=== PATIENT | female | born 1985 | race Caucasian/White ===

== ENCOUNTER → 2022-11-28 | Outpatient (CLI) | payer OTHER, SELFPAY ==
[2022-11-29 22:07] LABS: Chlamydia By Nucleic Acid AMP Negative (Negative); Gonococcus By Nucleic Acid AMP Negative (Negative)
== END | disposition home or self-care (01) ==
LOC: LABSPEC 11:53
PROVIDERS: Referring Provider Obstetrics & Gynecology; Visit Provider Obstetrics & Gynecology
DX: O09.91 Supervision of high risk pregnancy, unspecified, first trimester (principal)
CPT/HCPCS: 87491; 87591

== ENCOUNTER → 2023-06-12 | Outpatient (CLI) | payer OTHER, SELFPAY ==
[2023-06-12 14:19] LABS: Protein:Creat Ratio 65 mg/g CRE (0-200)
[2023-06-17 00:06] LABS: Chlamydia By Nucleic Acid AMP Negative (Negative); Gonococcus By Nucleic Acid AMP Negative (Negative)
== END | disposition home or self-care (01) ==
LOC: LABSPEC 13:47
PROVIDERS: Referring Provider Obstetrics & Gynecology; Visit Provider Obstetrics & Gynecology
DX: Z34.90 Encounter for supervision of normal pregnancy, unspecified, unspecified trimester (principal); Z3A.00 Weeks of gestation of pregnancy not specified
CPT/HCPCS: 82570; 84156; 87086; 87088; 87491; 87591

== ENCOUNTER → 2023-07-16 | Outpatient (CLI) | payer OTHER, SELFPAY ==
[2023-07-16 10:27] LABS: Absolute Lymphocyte Count 1.24 X10^3/uL (0.83-4.51); Absolute Neutrophil Count 4.3 X10^3/uL (2.0-7.7); Basophil# 0.02 X10^3/uL; Basophil% 0.3 % (0-1); Eosinophil# 0.33 X10^3/uL; Eosinophils% 5.1 % (0-5); Hematocrit 37.6 % (37-47); Hemoglobin 13.1 g/dL (12.0-15.0); Lymphocyte # 1.24 X10^3/ul (0.83-4.51); Lymphocyte % 19.1 % (19-41); Mean Corp Hgb Conc 34.8 g/dL (32-36); Mean Corpuscular Hgb 31.3 pg (27.0-32.0); Mean Corpuscular Volume 89.7 fL (81-99); Mean Platelet Vol. 9.1 fl (6.2-12.0); Monocyte# 0.56 X10^3/uL; Monocyte% 8.6 % (0-10); NRBC Flagged by Analyzer 0 % (0-5); Neutrophil # 4.32 X10^3/uL (2.7-7.7); Neutrophil % 66.6 % (47-70); Platelet Count 220 K/mm3 (150-450); Red Blood Count 4.19 M/mm3 (4.2-5.4); White Blood Count 6.5 K/mm3 (4.4-11.0)
[2023-07-16 10:45] LABS: ALB/GLOB Ratio 0.8 RATIO (0.9-2.4); AST(SGOT) 10 U/L (15-37); Alanine Aminotransfer ALT/SGPT 17 U/L (13-56); Alkaline Phosphatase 44 U/L (45-117); Anion Gap 6 (5-15); BUN 12 mg/dL (7-18); BUN/Creat Ratio 15.4 RATIO (10-20); Calcium,Total 9.1 mg/dL (8.5-10.1); Chloride 109 mmol/L (98-107); Creatinine, Serum 0.78 mg/dL (0.55-1.02); EST Glomerular Filtration Rate 88 mL/min (>60); Est Glom Filt Rate - Afr Amer 107 mL/min (>60); Globulin 3.9 g/dL (2.2-4.2); Glucose 82 mg/dL (74-106); Potassium 4.2 mmol/L (3.5-5.1); Protein, Total 6.9 g/dL (6.4-8.2); Sodium Level 137 mmol/L (136-145)
[2023-07-16 11:45] LABS: HIV - WCH Non-Reactive (Nonreactive); Hepatitis B Surface Antigen Non-Reactive (Nonreactive); Hepatitis C Antibody Non-Reactive (Nonreactive); Rubella IgG Reactive (Nonreactive); Syphilis Antibodies Non-reactive
== END | disposition home or self-care (01) ==
LOC: PAVLAB 09:51
PROVIDERS: Referring Provider Obstetrics & Gynecology; Visit Provider Obstetrics & Gynecology
DX: O09.299 Supervision of pregnancy with other poor reproductive or obstetric history, unspecified trimester (principal); Z3A.00 Weeks of gestation of pregnancy not specified
CPT/HCPCS: 36415; 80053; 85025; 86703; 86762; 86780; 86803; 86850; 86900; 86901; 87340

== ENCOUNTER → 2023-10-10 | Outpatient (CLI) | payer OTHER, SELFPAY ==
[2023-10-10 16:06] LABS: Absolute Lymphocyte Count 1.11 X10^3/uL (0.83-4.51); Absolute Neutrophil Count 3.8 X10^3/uL (2.0-7.7); Basophil# 0.03 X10^3/uL; Basophil% 0.5 % (0-1); Eosinophil# 0.86 X10^3/uL; Hematocrit 35.1 % (37-47); Hemoglobin 12.2 g/dL (12.0-15.0); Lymphocyte # 1.11 X10^3/ul (0.83-4.51); Lymphocyte % 18.1 % (19-41); Mean Corp Hgb Conc 34.8 g/dL (32-36); Mean Corpuscular Hgb 31.9 pg (27.0-32.0); Mean Corpuscular Volume 91.9 fL (81-99); Mean Platelet Vol. 9.4 fl (6.2-12.0); Monocyte# 0.29 X10^3/uL; Monocyte% 4.7 % (0-10); NRBC Flagged by Analyzer 0 % (0-5); Neutrophil # 3.83 X10^3/uL (2.7-7.7); Neutrophil % 62.4 % (47-70); Platelet Count 222 K/mm3 (150-450); RBC Distribution Width CV 13.2 % (11.6-14.6); RBC Distribution Width SD 43.8 fl (35.1-43.9); Red Blood Count 3.82 M/mm3 (4.2-5.4); White Blood Count 6.1 K/mm3 (4.4-11.0)
[2023-10-10 16:31] LABS: Glucose Challenge Gest 1H 50g 163 mg/dL (70-140)
[2023-10-10 18:05] LABS: HIV - WCH Non-Reactive (Nonreactive); Syphilis Antibodies Non-reactive
== END | disposition home or self-care (01) ==
LOC: LAB 15:53
PROVIDERS: Referring Provider Obstetrics & Gynecology; Visit Provider Obstetrics & Gynecology
DX: O09.90 Supervision of high risk pregnancy, unspecified, unspecified trimester (principal); Z13.1 Encounter for screening for diabetes mellitus; Z3A.00 Weeks of gestation of pregnancy not specified
CPT/HCPCS: 36415; 82950; 85025; 86703; 86780

== ENCOUNTER → 2023-10-22 | Outpatient (CLI) | payer OTHER, SELFPAY ==
[2023-10-22 08:03] LABS: Glucose GTT-Gestation. Fasting 95 mg/dL (<105)
[2023-10-22 08:50] LABS: Glucose GTT-Gestational 1 Hr 183 mg/dL (<190)
[2023-10-22 10:03] LABS: Glucose GTT-Gestational 2 Hr 129 mg/dL (<165)
[2023-10-22 11:21] LABS: Glucose GTT-Gestational 3 Hr 85 L (<145)
== END | disposition home or self-care (01) ==
LOC: LAB 07:13
PROVIDERS: Referring Provider Advanced Practice Midwife; Visit Provider Advanced Practice Midwife
DX: O99.281 Endocrine, nutritional and metabolic diseases complicating pregnancy, first trimester (principal); Z3A.00 Weeks of gestation of pregnancy not specified
CPT/HCPCS: 36415; 82951; 82952

== ENCOUNTER → 2023-12-02 | Outpatient (CLI) | payer OTHER, SELFPAY ==
--- NOTE | 2023-12-02 12:32 | US_ITS ---
STUDY: SECOND AND THIRD TRIMESTER OBSTETRICAL ULTRASOUND - LIMITED REASON FOR EXAM: Female, 38 years old routine survey LMP: 03/26/2023 PRIOR ULTRASOUND: None. TECHNIQUE: Transabdominal TECHNICAL QUALITY: Adequate. FINDINGS: There is a single intrauterine fetus. The fetus is in a cephalic presentation. There is demonstrated cardiac activity with a heart rate of 152 bpm. There is a normal amniotic fluid volume. The largest amniotic fluid pocket measures 4.3 cm. The amniotic fluid index (ANDREA) is 12 cm. The placenta is anterior in location and is not low lying. There are Grade 1 placental changes. The cervix was not measured BIOMETRY: BPD: 9.2 cm: 37 weeks, 2 days HC: 32.6 cm: 37 weeks, 0 days AC: 32.5 cm: 36 weeks, 3 days FL: 6.8 cm: 35 weeks, 0 days age by current US: 36 weeks, 4 days. HARSHAL by current US: 12/26/2023. Estimated weight: 2914 grams, +/- 437 grams, 64 percentile. US/OB Limited With Biometrics IMPRESSION: Single live intrauterine at 36 weeks, 4 days by current ultrasound with HARSHAL of 12/26/2023. Heart rate at 152 bpm. No suspicious sonographic findings. Electronically Signed: Imtiaz Reddy MD at 15:21 EDT ,
[2023-12-04 16:09] LABS: Lyme Scn Total Ab w/Rflx Negative (Negative)
== END | disposition home or self-care (01) ==
PROVIDERS: Obstetrics & Gynecology; Referring Provider Nurse Practitioner Women's Health; Visit Provider Nurse Practitioner Women's Health
DX: O9A.212 Injury, poisoning and certain other consequences of external causes complicating pregnancy, second trimester (principal); O09.92 Supervision of high risk pregnancy, unspecified, second trimester; S30.861A Insect bite (nonvenomous) of abdominal wall, initial encounter; W57.XXXA Bitten or stung by nonvenomous insect and other nonvenomous arthropods, initial encounter; Z3A.00 Weeks of gestation of pregnancy not specified
CPT/HCPCS: 36415; 76816; 86618; 87081

== ENCOUNTER 2023-12-24 11:58 | Outpatient (CLI) | payer OTHER, SELFPAY ==
--- NOTE | 2023-12-24 12:08 | US_ITS ---
STUDY: OBSTETRICAL ULTRASOUND - BIOPHYSICAL PROFILE REASON FOR EXAM: Female, 38 years old variables LMP: March 26, 2023 PRIOR ULTRASOUND: Comparison is made with prior study December 02, 2023. TECHNIQUE: Transabdominal TECHNICAL QUALITY: Adequate. FINDINGS: There is a single intrauterine fetus. The fetus is in a cephalic presentation. There is demonstrated cardiac activity with a heart rate of 155 bpm. There is a normal amniotic fluid volume. The largest amniotic fluid pocket measures 4.2 cm. The amniotic fluid index (ANDREA) is 10.9 cm. The placenta is anterior in location and is not low lying. There are Grade 1 placental changes. Age by LMP: 39 weeks, 0 days. HARSHAL by LMP: December 31, 2023. age by prior US: 39 weeks, 5 days. HARSHAL by prior US: December 26, 2023. BIOPHYSICAL PROFILE: Breathing Movements (FBM): 2 Gross Body Movements (GBM): 2 Tone (FT): 2 Amniotic Fluid Volume (AFV): 2 TOTAL SCORE: 8/ 8 US/Biophysical Prof W/O Non Stres IMPRESSION: Normal biophysical profile of 8/8. Electronically Signed: Leandro Hernandez MD at 13:32 EDT ,
[2023-12-24 12:09] VITALS: BMI 30.8
[2023-12-24 12:21] VITALS: BP 120/81; PULSE 82; O2SAT 99
[2023-12-24 12:22] VITALS: RESP 14; TEMP 36.9; O2SAT 99
[2023-12-24 13:50] VITALS: RESP 15; TEMP 36.9
--- NOTE | 2023-12-24 16:37 | OB.TRI.HP_ITS ---
HPI - General HPI Narrative PRESTON WIGGINS, is a 38 y/o @ 39 WEEKS 0 DAYS who presents to L&D for a bpp due to a non-reactive nst. She has a history of factor V on lovenox, is ama, and has a prior uterine scar. She came to us in the hopes to deliver vaginally but her insurance is not without our network. She is closed thick and high today and is already 39 weeks. Her bpp was 02/18 however the recommendation is to deliver here soon via repeat section. Her office in [place] will take her due to late transfer of care and she would pay out of pocket for MFM in [place]. Because of this she has decided to allow us to schedule her section for next week. Maternal Data Information HARSHAL Calculator Estimated Delivery Date Method Current WG Current Estimate 12/31/23 LMP (Certain) 39w 0d Other Estimates 03/02/24 Conception 30w 1d PFSH PFSH Medical History FH: factor V Leiden mutation Hx of ectopic Supervision of high risk in first trimester Home Medications ?Medication ?Instructions ?Recorded ?Last Taken ?Type ascorbic acid (vitamin C) 500 mg mg PO 11/28/22 Unknown History capsule cholecalciferol (vitamin D3) 50 50 mcg PO DAILY 11/28/22 Unknown History mcg (2,000 unit) capsule coenzyme Q10 75 mg capsule (Ultra 75 mg PO DAILY 11/28/22 Unknown History CoQ10) docosahexaenoic acid 200 mg mg PO 11/28/22 Unknown History capsule ( DHA) promethazine 12.5 mg tablet 12.5 mg PO Q6H PRN nausea and 07/16/23 Unknown Rx vomiting #30 tabs breast pump #1 ea 11/05/23 Unknown Rx enoxaparin 40 mg/0.4 mL 40 mg (0.4 mL) subcut DAILY #4 mL 11/14/23 Unknown Rx subcutaneous syringe (Lovenox) heparin, porcine (PF) 5,000 5,000 unit (0.5 mL) subcut Q12H 12/24/23 Unknown Rx unit/0.5 mL injection syringe #25 mL Allergy/AdvReac Type Severity Reaction Status Date / Time No Known Allergies Allergy Verified 12/24/23 10:59 Family History Father Myocardial infarction Grandmother Colon cancer Sister Gestational diabetes Surgical History [place] teeth extracted History of dilatation and curettage H/O unilateral salpingectomy Social History adopted: No household members: spouse and children number of children: 1 current occupational status: employed current occupation: Mental Health Counselor current occupational exposures/hazards: No pets and animals: No history of recent travel: No sexually active: Yes Smoking Status: Never smoker alcohol intake: never substance use type: does not use well-balanced diet: daily or most days caffeine: Yes Type: coffee Number of servings: 1 and tea Number of servings: 1 eating out: 1-3 times/week during the past year weight has: remained stable what type of physical activity do you participate in: walking and weight training frequency: 3-4 times per week duration: 30-45 minutes/day heather/denominational: Quaker seatbelt use: always do you feel safe at home: Yes additional social history: - Tho- Nurse History 4 Elective abortions Hx Para 1 Spontaneous abortions 1 Hx # Term Pregnancies Ectopic pregnancies 1 Hx # Pregnancies Multiple births # of living children 1 Past Pregnancies Del. Date Name GA/Weeks Outcome Route Bth Weight Gen Labor Lgth Anesthesia [facility] Provider FOB 07/16/17 ectopic 02/23/21 [place] 40 live - full term Female 12/03/22 miscarriage-failed IVF Delivery Date: 07/16/17 Last Updated by: Selina Burgess DO Ectopic with removal of left fallopian tube. Delivery Date: 02/23/21 Last Updated by: Selina Burgess DO for distress and htn Visit Details Expected Delivery Route/Plan plan TOLAC by 40, will get 2x weekly nst between 39 and 40 weeks. patient counseled regarding risks/benefits of trial of labor versus repeat . ACOG/uptodate education given to patient. 62 % likelihood of success per calculator TOLAC consent form signed: [] Plans Covid status: [] Flu vaccine: [] Tdap vaccine: done Rhogam: [] LARC form signed: done Problem list reviewed and updated with the most current plan of care details and appropriate orders placed. Relevant counseling for the gestational age provided. Continue routine care and follow up unless otherwise noted in visit notes/problem list details OB Flowsheet Initial Weight: Not Recorded Date -?-?-?-?-?-?-?-?-?-?-?-?- EGA Weight BP Urine Prot -?-?-?-?-?--?-?-?-?-?-?-?- Glucose FHR FuHt Pres Dilation -?-?-?-?-?-?-?-?-?-?-?--?- Effaced St Visit Note 06/12/23 -?-?-?-?-?-?-?-?-?-?-?-?- 11w 1d 147 lb 98/70 -?-?-?-?-?-?-?-?-?-?-?-?- 170 -?-?-?-?-?-?-?-?-?-?-?-?- SM- CRL cons wit h LMP 07/16/23 -?-?-?-?-?-?-?-?-?-?-?-?- 16w 0d 148 lb 2 oz 98/66 Nega tive -?-?-?-?-?-?-?-?-?-?-?-?- Negative 158 -?-?-?-?-?-?-?-?-?-?-?-?- MH-No VB. Feelin g flutters. Still struggling with nausea. Also some headaches without vision changes. Rx phenergan. Reviewed caffeine intake. [facility] US scheduled and will do echo w them. PN labs today 08/11/23 -?-?-?-?-?-?-?-?-?-?-?-?- 19w 5d 153 lb 101/65 Negative -?-?-?-?-?-?-?-?-?-?-?-?- Negative 150 -?-?-?-?-?-?-?-?-?-?-?-?- JV- feeling flut ters, has echo on 08/27. having a boy! 09/10/23 -?-?-?-?-?-?-?-?-?-?-?-?- 24w 0d 155 lb 104/72 Negative -?-?-?-?-?-?-?-?-?-?-?-?- Negative 154 24 -?-?-?-?-?-?-?-?-?-?-?-?- JV- had anatomy and echo at [facility]. will need to call for results, pt already signed release. 10/10/23 -?-?-?-?-?-?-?-?-?-?-?-?- 28w 2d 160 lb 2 oz 112/80 -?-?-?--?-?-?-?-?-?-?-?-?- 140 28 -?-?-?-?-?-?-?-?-?-?-?-?- KW- no vb/lof/ct x. good fm. Tdap today. LARC done. KW- no vb/lof/ctx. good fm. Tdap today. LARC done. labs reviewed. 3 hour ordered 10/22/23 -?-?-?-?-?-?-?-?-?-?-?-?- 30w 0d 162 lb 8 oz 110/66 Nega tive -?-?-?-?-?-?-?-?-?-?-?-?- Negative 151 30 -?-?-?-?-?-?-?-?-?-?-?-?- MH-No VB, LOF. G ood FM. Did 3 hr GTT today. Some reflux/nausea-will try pepcid QHS 11/05/23 -?-?-?-?-?-?-?-?-?-?-?-?- 32w 0d 163 lb 2 oz 109/75 Nega tive -?-?-?-?-?-?-?-?-?-?-?-?- Negative 150 -?-?-?-?-?-?-?-?-?-?-?-?- JV- JV-NST. pt upset today when mentioned delivering at 39 weeks and may have to be a repeat section. she states that she is coming here paying out of pocket to [place] and if needs to schedule a section she will do that closer to home. will plan 39 week membrane strip and IOL sometime within the 39th week. 11/14/23 -?-?-?-?-?-?-?-?-?-?-?-?- 33w 2d 164 lb 4 oz 95/68 Nega tive -?-?-?-?-?-?-?-?-?-?-?-?- Negative 140 -?-?-?-?-?-?-?-?-?-?-?-?- SM- no vb lof go od fm nor egular ctx co hip pain discussed exp management with increased testing after 39-40 weeks if needed. jessica by 40 11/18/23 -?-?-?-?-?-?-?-?-?-?-?-?- 33w 6d 165 lb 95/65 Negative -?-?-?-?-?-?-?-?-?-?-?-?- Negative 140 -?-?-?-?-?-?-?-?-?-?-?-?- SM- no vb crampi ng 11/25/23 -?-?-?-?-?-?-?-?-?-?-?-?- 34w 6d 169 lb 6 oz 93/62 Trac e -?-?-?-?-?-?-?-?-?-?-?-?- Negative 140 -?-?-?-?-?-?-?-?-?-?-?-?- -NST only reac tive 12/02/23 -?-?-?-?-?-?-?-?-?-?-?-?- 35w 6d 168 lb 8 oz 124/89 Nega tive -?-?-?-?-?-?-?-?-?-?-?-?- Negative 140 36 -?-?-?-?-?-?-?-?-?-?-?-?- JV- nst reactive . gbs collected. pt was bit by a tick on her abdomen a couple of weeks ago. has a bruise on her abdomen (not a target lesion). however could be bruise from lovenox. ordering lyme studies. 12/12/23 -?-?-?-?-?-?-?-?-?-?-?-?- 37w 2d 174 lb 8 oz 111/79 Nega tive -?-?-?-?-?-?-?-?-?-?-?-?- Negative 140 -?-?-?-?-?-?-?-?-?-?-?-?- SM- no vb lof go od fm n oregular ctx 12/19/23 -?-?-?-?-?-?-?-?-?-?-?-?- 38w 2d 174 lb 4 oz 120/83 Nega tive -?-?-?-?-?-?-?-?-?-?-?-?- Negative 140 38 0 -?-?-?-?-?-?-?-?-?-?-?-?- 0 -4 SM- extens kika discussion regarding unfavorable cervix, risk of continued , risk of lovenox vs switching to heparin, will discuss amongst group to decide delivery planning. patient may decide to have RLTCS with [facility] due to insurance coverage if is unlikely 12/24/23 -?-?-?-?-?-?-?-?-?-?-?-?- 39w 0d 176 lb 4 oz 131/87 Nega tive -?-?-?-?-?-?-?-?-?-?-?-?- Negative 140 37 Cephalic 0 -?-?-?-?--?-?-?-?-?-?-?-?- 0 -4 JV- nst no t reactive and had 2 small carrot decels. ANDREA is 7 today. not likely to happen. sending to L&D now for a bpp. if stable may want to be transferred to [place] but i can not promise this will happen as she never established care with anyone down there. ROS Constitutional Constitutional: Reports systems reviewed and no addt'l complaints, except as documented Gastrointestinal Gastrointestinal: Denies bloating, constipation, cramping, diarrhea, nausea or vomiting Genitourinary Genitourinary: Reports other Details: Denies vaginal odor, vaginal bleeding, or vaginal discharge ; Denies difficulty urinating or flank pain Physical Exam HEENT normocephalic Resp normal respiratory effort and normal air movement no CVA tenderness Extremity normal to inspection General Extremity: edema bilateral (trace ) NST FHR Rate Baby A Baseline: 140 Variability:: Moderate Accelerations:: 15 x 15 Decelerations:: None NST Reactive:: Yes FHR Category:: Category I Assessment & Plan (1) AMA (advanced maternal age) multigravida 35+: QUALIFIERS: Trimester: third trimester Qualified Code(s): O09.523 - Supervision of elderly multigravida, third trimester COMMENT: growth US 36 wk: EFW 64%, AC 75% (2) Abnormal glucose affecting : COMMENT: 3 hr GTT normal (3) Headache in : QUALIFIERS: Trimester: second trimester Qualified Code(s): O26.892 - Other specified related conditions, second trimester; R51.9 - Headache, unspecified COMMENT: No vision changes. Phenergan sent, may use small amount caffeine (4) Nausea/vomiting in : COMMENT: phenergan; occurs a couple mornings per week, try pepcid Qhs (5) resulting from in-vitro fertilization: COMMENT: recommend third trimester testing and 39 week delivery echo 22-24 wk-nl (6) Hx of pre-eclampsia in prior , currently : COMMENT: baseline labs ordered, on heparin (7) Supervision of high-risk : QUALIFIERS: Trimester: second trimester Qualified Code(s): O09.92 - Supervision of high risk , unspecified, second trimester COMMENT: PRR , HARSHAL 12/31/23, boy Rudolph Mortensen, Tho (8) : QUALIFIERS: Weeks of gestation: 39 weeks Qualified Code(s): Z3A.39 - 39 weeks gestation of COMMENT: gbs neg, declined genetic & carrier testing [facility] US 08/04/23 (9) History of delivery: COMMENT: 2018 ectopic 2021 primary section for distress and htn. 62% success, wants to - tearful when bringing up scheduling incase does not go in to labor. StatesI only came here to and I'm paying out of pocket, so if we are planning a then I will go to a place closer to my home. has a difficult time post op with a wound vac. (10) Heterozygous factor V Leiden mutation: COMMENT: Factor 2 and factor V heterozygous- no clots in past but father had life threatening blood clots with these disorders and specialists in the past have recommended lovenox during . On lovenox, plan twice weekly NST between 39-40 weeks with deliveyr at 40 weeks requested by patient. if will deliver in [place], if repeat csection may deliver at [facility] due to insurance coverage. Charges/Coding Multi Select Codes Visit Charges Office Visit/Consults: 57435 OV L3 Est 20min Urinary/Genital Urinary/Genital CPT Codes: 41427-73 non-stress test Interp
== END 2023-12-24 15:00 | disposition home or self-care (01) ==
LOC: WPOUT 12:04 → WP 12:04
PROVIDERS: Referring Provider Obstetrics & Gynecology; Visit Provider Obstetrics & Gynecology
DX: O09.523 Supervision of elderly multigravida, third trimester (principal); O99.810 Abnormal glucose complicating pregnancy; O99.113 Other diseases of the blood and blood-forming organs and certain disorders involving the immune mechanism complicating pregnancy, third trimester; D68.51 Activated protein C resistance; Z3A.39 39 weeks gestation of pregnancy
CPT/HCPCS: 59025; 59050; 76819; 99221; G0378

== ENCOUNTER 2023-12-30 17:17 | Inpatient (IN) | payer OTHER, SELFPAY ==
[2023-12-30] VITALS (7 sets, daily range): BP systolic 107–131; BP diastolic 73–85; PULSE 71–93; RESP 16; TEMP 36.6–36.9; O2SAT 97–100; BMI 31.1
--- NOTE | 2023-12-30 17:18 | HP.PCM.OB_ITS ---
HPI - General General Date of Admission: 12/30/23 HPI Narrative PRESTON WIGGINS, is a 38 y/o @ 39 weeks 6 days who presents to L&D with spontaneous rupture of membranes that started at 12 or 1 pm today. She presented at 5:00 pm. She admits to some bloody show and occasional contractions. Maternal Data Information HARSHAL Calculator Estimated Delivery Date Method Current WG Current Estimate 12/31/23 LMP (Certain) 39w 6d Other Estimates 03/02/24 Conception 31w 0d PFSH PFSH Medical History FH: factor V Leiden mutation Hx of ectopic Supervision of high risk in first trimester Home Medications ?Medication ?Instructions ?Recorded ?Last Taken ?Type ascorbic acid (vitamin C) 500 mg mg PO 11/28/22 Unknown History capsule cholecalciferol (vitamin D3) 50 50 mcg PO DAILY 11/28/22 Unknown History mcg (2,000 unit) capsule coenzyme Q10 75 mg capsule (Ultra 75 mg PO DAILY 11/28/22 Unknown History CoQ10) docosahexaenoic acid 200 mg mg PO 11/28/22 Unknown History capsule ( DHA) promethazine 12.5 mg tablet 12.5 mg PO Q6H PRN nausea and 07/16/23 Unknown Rx vomiting #30 tabs breast pump #1 ea 11/05/23 Unknown Rx heparin, porcine (PF) 5,000 5,000 unit (0.5 mL) subcut Q12H 12/24/23 Unknown Rx unit/0.5 mL injection syringe #25 mL Allergy/AdvReac Type Severity Reaction Status Date / Time No Known Allergies Allergy Verified 12/26/23 09:10 Family History Father Myocardial infarction Grandmother Colon cancer Sister Gestational diabetes Surgical History Prosper teeth extracted History of dilatation and curettage H/O unilateral salpingectomy Social History adopted: No household members: spouse and children number of children: 1 current occupational status: employed current occupation: Mental Health Counselor current occupational exposures/hazards: No pets and animals: No history of recent travel: No sexually active: Yes Smoking Status: Never smoker alcohol intake: never substance use type: does not use well-balanced diet: daily or most days caffeine: Yes Type: coffee Number of servings: 1 and tea Number of servings: 1 eating out: 1-3 times/week during the past year weight has: remained stable what type of physical activity do you participate in: walking and weight training frequency: 3-4 times per week duration: 30-45 minutes/day heather/tenriism: Faith seatbelt use: always do you feel safe at home: Yes additional social history: - Tho- Nurse History 4 Elective abortions Hx Para 1 Spontaneous abortions 1 Hx # Term Pregnancies Ectopic pregnancies 1 Hx # Pregnancies Multiple births # of living children 1 Past Pregnancies Del. Date Name GA/Weeks Outcome Route Bth Weight Infant Gen Labor Lgth Anesthesia Del [facility] Provider FOB 07/16/17 ectopic 02/23/21 Festus 40 live - full term Female 12/03/22 miscarriage-failed IVF Delivery Date: 07/16/17 Last Updated by: Selina Burgess, DO Ectopic with removal of left fallopian tube. Delivery Date: 02/23/21 Last Updated by: Selina Burgess, DO for distress and htn Visit Details Expected Delivery Route/Plan plan TOLAC by 40, will get 2x weekly nst between 39 and 40 weeks. patient counseled regarding risks/benefits of trial of labor versus repeat . ACOG/uptodate education given to patient. 62 % likelihood of success per calculator TOLAC consent form signed: [] Plans Covid status: [] Flu vaccine: [] Tdap vaccine: done Rhogam: [] LARC form signed: done Problem list reviewed and updated with the most current plan of care details and appropriate orders placed. Relevant counseling for the gestational age provided. Continue routine care and follow up unless otherwise noted in visit notes/problem list details OB Flowsheet Initial Weight: Not Recorded Date -?-?-?-?-?-?-?-?-?-?-?-?- EGA Weight BP Urine Prot -?-?-?-?-?-?-?-?-?-?-?-?- Glucose FHR FuHt Pres Dilation -?-?-?-?-?-?-?-?-?-?-?-?- Effaced St Visit Note 06/12/23 -?-?-?-?-?-?-?-?-?-?-?-?- 11w 1d 147 lb 98/70 -?-?-?-?-?-?-?-?-?-?-?-?- 170 -?-?-?-?-?-?-?-?-?-?-?-?- SM- CRL cons wit h LMP 07/16/23 -?-?-?-?-?-?-?-?-?-?-?-?- 16w 0d 148 lb 2 oz 98/66 Nega tive -?-?-?-?-?-?-?-?-?-?-?-?- Negative 158 -?-?-?-?-?-?-?-?-?-?-?-?- MH-No VB. Feelin g flutters. Still struggling with nausea. Also some headaches without vision changes. Rx phenergan. Reviewed caffeine intake. [facility] US scheduled and will do echo w them. PN labs today 08/11/23 -?-?-?-?-?-?-?-?-?-?-?-?- 19w 5d 153 lb 101/65 Negative -?-?-?-?-?-?-?--?-?-?-?-?- Negative 150 -?-?-?-?-?-?-?-?-?-?-?-?- JV- feeling flut ters, has echo on 08/27. having a boy! 09/10/23 -?-?-?-?-?-?-?-?-?-?-?-?- 24w 0d 155 lb 104/72 Negative -?-?-?-?-?-?-?-?-?-?-?-?- Negative 154 24 -?-?-?-?-?-?-?-?-?-?-?-?- JV- had anatomy and echo at [facility]. will need to call for results, pt already signed release. 10/10/23 -?-?-?-?-?-?-?-?-?-?-?-?- 28w 2d 160 lb 2 oz 112/80 -?-?-?-?-?-?-?-?-?-?-?-?- 140 28 -?-?-?-?-?-?-?-?-?-?-?-?- KW- no vb/lof/ct x. good fm. Tdap today. LARC done. KW- no vb/lof/ctx. good fm. Tdap today. LARC done. labs reviewed. 3 hour ordered 10/22/23 -?-?-?-?-?-?-?-?-?-?-?-?- 30w 0d 162 lb 8 oz 110/66 Nega tive -?-?-?-?-?-?-?-?-?-?-?-?- Negative 151 30 -?-?-?-?-?-?-?-?-?-?-?-?- MH-No VB, LOF. G ood FM. Did 3 hr GTT today. Some reflux/nausea-will try pepcid QHS 11/05/23 -?-?-?-?-?-?-?-?-?-?-?-?- 32w 0d 163 lb 2 oz 109/75 Nega tive -?-?-?-?-?-?-?-?-?-?-?-?- Negative 150 -?-?-?-?-?-?-?-?-?-?-?-?- JV- JV-NST. pt upset today when mentioned delivering at 39 weeks and may have to be a repeat section. she states that she is coming here paying out of pocket to [place] and if needs to schedule a section she will do that closer to home. will plan 39 week membrane strip and IOL sometime within the 39th week. 11/14/23 -?-?-?-?-?-?-?-?-?-?-?-?- 33w 2d 164 lb 4 oz 95/68 Nega tive -?-?-?-?-?-?-?-?-?-?-?-?- Negative 140 -?-?-?-?-?-?-?-?-?-?-?-?- SM- no vb lof go od fm nor egular ctx co hip pain discussed exp management with increased testing after 39-40 weeks if needed. jessica by 40 11/18/23 -?-?-?-?-?-?-?-?-?-?-?-?- 33w 6d 165 lb 95/65 Negative -?-?-?-?-?-?-?-?-?-?-?-?- Negative 140 -?-?-?-?-?-?-?-?-?-?-?-?- SM- no vb crampi ng 11/25/23 -?-?-?-?--?-?-?-?-?-?-?-?- 34w 6d 169 lb 6 oz 93/62 Trac e -?-?-?-?-?-?-?-?-?-?-?-?- Negative 140 -?-?-?-?-?-?-?-?-?-?-?-?- MH-NST only reac tive 12/02/23 -?-?-?-?-?-?-?-?-?-?-?-?- 35w 6d 168 lb 8 oz 124/89 Nega tive -?-?-?-?-?-?-?-?-?-?-?-?- Negative 140 36 -?-?-?-?-?-?-?-?-?-?-?-?- JV- nst reactive . gbs collected. pt was bit by a tick on her abdomen a couple of weeks ago. has a bruise on her abdomen (not a target lesion). however could be bruise from lovenox. ordering lyme studies. 12/12/23 -?-?-?-?-?-?-?-?-?-?-?-?- 37w 2d 174 lb 8 oz 111/79 Nega tive -?-?-?-?-?-?-?-?-?-?-?-?- Negative 140 -?-?-?-?-?-?-?-?-?-?--?-?- SM- no vb lof go od fm n oregular ctx 12/19/23 -?-?-?-?-?-?-?-?-?-?-?-?- 38w 2d 174 lb 4 oz 120/83 Nega tive -?-?-?-?-?-?-?-?-?-?-?-?- Negative 140 38 0 -?-?-?-?-?-?-?-?-?-?-?-?- 0 -4 SM- extens kika discussion regarding unfavorable cervix, risk of continued , risk of lovenox vs switching to heparin, will discuss amongst group to decide delivery planning. patient may decide to have RLTCS with [facility] due to insurance coverage if is unlikely 12/24/23 -?-?-?-?-?-?-?-?-?-?-?-?- 39w 0d 176 lb 4 oz 131/87 Nega tive -?-?-?-?-?-?-?-?-?-?-?-?- Negative 140 37 Cephalic 0 -?-?-?-?-?-?-?-?-?-?-?-?- 0 -4 JV- nst no t reactive and had 2 small carrot decels. ANDREA is 7 today. not likely to happen. sending to L&D now for a bpp. if stable may want to be transferred to [place] but i can not promise this will happen as she never established care with anyone down there. ROS Constitutional Constitutional: Denies change in weight, fatigue, fever(s), headache(s), poor appetite or weakness Eyes Eyes: Denies blurry vision, change in vision, seeing flashes or spots in vision ENT HEENT: Denies dizziness, headache(s), loss taste/smell or sore throat Cardiovascular Cardiovascular: Denies chest pain, dizziness, dyspnea, irregular heart rhythm, leg edema, palpitations, rapid heart rate or vomiting Respiratory/Chest Respiratory/Chest: Denies chest tightness, cough, dyspnea or breast pain Gastrointestinal Gastrointestinal: Denies abdominal pain, anorexia, constipation, cramping, diarrhea, hemorrhoids, vomiting or weight changes Genitourinary Genitourinary: Denies dysuria, flank pain, genital lesions, genital pain, urinary frequency or urinary urgency Musculoskeletal Musculoskeletal: Denies back pain, difficulty walking, joint pain, limited range of motion, muscle cramps or numbness Integumentary Integumentary: Denies lesions or unusual bruising Neurologic Neurologic: Denies abnormal movements, abnormal speech, dizziness, numbness, seizure-like activity or syncope Psychiatric Psychiatric: Denies anxiety, behavioral changes, change in appetite, change in libido, cognitive impairment, confusion, depression, difficulty concentrating, hallucinations or suicidal thoughts Endocrine Endocrinology: Denies excessive sweating, polydipsia or polyuria Hematologic/Lymphatic Hematologic/Lymphatic: Denies easy bleeding, easy bruising or lymphadenopathy Allergic/Immunologic Allergic/Immunologic: Denies itchy eyes, lip swelling, seasonal rhinorrhea, rhinitis, throat swelling, tongue swelling, eczemia, wheezing or asthma Physical Exam Const alert, oriented x3, no apparent distress and healthy appearing General Appearance: cooperative; Negative for anxious HEENT normocephalic Face and Sinus: normal facial exam Eyes EOMs intact bilaterally and no scleral icterus General Eye: normal appearance of both eyes Neck full ROM and supple Lymph Lymphatic: no lymphadenopathy noted Chest Chest: abnormal inspection of the chest Resp normal respiratory effort Effort and Inspection: able to speak in complete sentences Cardio regular rate GI soft to palpation and non-tender Inspection: gravid Palpation: soft; Negative for tender external exam normal Amniotic Fluid: ROM+plus and other rom plus is pending. cx closed/thick/high Back/Spine no CVA tenderness Extremity normal to inspection, full ROM and no clubbing, cyanosis or edema General Extremity: Negative for calf tenderness or edema Skin Lesions: no lesions Rashes: no rashes Psych mental status grossly normal Labs Labs Labs: Blood Type A POSITIVE Antibody Screen NEGATIVE Hct 35.1 % (37-47) L Hgb 12.2 g/dL (12.0-15.0) Obstetrics Ultrasound Syphilis Total Ab Non-reactive Rubella IgG Antibody Reactive (Nonreactive) Hep Bs Antigen Non-Reactive (Nonreactive) Hepatitis C Antibody Non-Reactive (Nonreactive) Chlamydia DNA ([place]) Negative (Negative) N.gonorrhoeae DNA ([place]) Negative (Negative) HIV 1&2 Antibody Non-Reactive (Nonreactive) Glucose 1 Hr 50 gm 163 mg/dL (70-140) H Gest Glucose Tolerance MG/DL Assessment & Plan (1) AMA (advanced maternal age) multigravida 35+: QUALIFIERS: Trimester: third trimester Qualified Code(s): O09.523 - Supervision of elderly multigravida, third trimester COMMENT: growth US 36 wk: EFW 64%, AC 75% (2) Abnormal glucose affecting : COMMENT: 3 hr GTT normal (3) Headache in : QUALIFIERS: Trimester: second trimester Qualified Code(s): O26.892 - Other specified related conditions, second trimester; R51.9 - Headache, unspecified COMMENT: No vision changes. Phenergan sent, may use small amount caffeine (4) Nausea/vomiting in : COMMENT: phenergan; occurs a couple mornings per week, try pepcid Qhs (5) resulting from in-vitro fertilization: COMMENT: recommend third trimester testing and 39 week delivery echo 22-24 wk-nl (6) Hx of pre-eclampsia in prior , currently : COMMENT: baseline labs ordered, on heparin (7) Supervision of high-risk : QUALIFIERS: Trimester: second trimester Qualified Code(s): O09.92 - Supervision of high risk , unspecified, second trimester COMMENT: PRR , HARSHAL 12/31/23, boy Rudolph Mortensen, Tho (8) : QUALIFIERS: Weeks of gestation: 39 weeks Qualified Code(s): Z3A.39 - 39 weeks gestation of COMMENT: gbs neg, declined genetic & carrier testing [facility] 08/04/23 (9) History of delivery: COMMENT: 2018 ectopic 2021 primary section for distress and htn. 62% success, wants to - tearful when bringing up scheduling incase does not go in to labor. StatesI only came here to and I'm paying out of pocket, so if we are planning a then I will go to a place closer to my home. has a dif ficult time post op with a wound vac. C/S scheduled for 12/31 @ 7:15 JV (10) Heterozygous factor V Leiden mutation: COMMENT: Factor 2 and factor V heterozygous- no clots in past but father had life threatening blood clots with these disorders and specialists in the past have recommended lovenox during . On lovenox, plan twice weekly NST between 39-40 weeks with deliveyr at 40 weeks requested by patient. if will deliver in [place], if repeat csection may deliver at [facility] due to insurance coverage. PLAN: Plan patient is not an ideal candidate for at this time as she is pprom and cervix is closed thick and high. At this point she is at significant risk for chorio if we do not proceed with delivery in a timely manner. She ate a grilled cheese sandwhich with salami and broccoli at 3 pm an anesthesia wants to wait a full 8 hours before her section if possible. plan is to re-check cervix around 10:15 or 11 pm tonight and if not dilated will proceed with section.
[2023-12-30 17:38] LABS: ROM Internal Control Test YES-OK TO RESULT pt. (Internal QC)
[2023-12-30 17:39] LABS: ROM Patient Test POSITIVE (Negative); Record Kit Lot#, ROM+ K1866
[2023-12-30 18:31] LABS: Absolute Lymphocyte Count 1.24 X10^3/uL (0.83-4.51); Absolute Neutrophil Count 4.3 X10^3/uL (2.0-7.7); Basophil# 0.02 X10^3/uL; Basophil% 0.3 % (0-1); Eosinophil# 0.36 X10^3/uL; Eosinophils% 5.6 % (0-5); Hematocrit 36.6 % (37-47); Hemoglobin 12.6 g/dL (12.0-15.0); Lymphocyte # 1.24 X10^3/ul (0.83-4.51); Lymphocyte % 19.3 % (19-41); Mean Corp Hgb Conc 34.4 g/dL (32-36); Mean Corpuscular Hgb 31.2 pg (27.0-32.0); Mean Corpuscular Volume 90.6 fL (81-99); Mean Platelet Vol. 10.6 fl (6.2-12.0); Monocyte# 0.46 X10^3/uL; Monocyte% 7.2 % (0-10); NRBC Flagged by Analyzer 0 % (0-5); Neutrophil # 4.33 X10^3/uL (2.7-7.7); Neutrophil % 67.3 % (47-70); Platelet Count 177 K/mm3 (150-450); RBC Distribution Width CV 12.8 % (11.6-14.6); RBC Distribution Width SD 42.5 fl (35.1-43.9); Red Blood Count 4.04 M/mm3 (4.2-5.4); White Blood Count 6.4 K/mm3 (4.4-11.0)
[2023-12-30 21:32] LABS: Syphilis Antibodies Non-reactive
[2023-12-30] MEDS: Lactated Ringers 1,000 ML 999 ML IV (21:32)
[2023-12-30] MEDS: Sodium Citrate/Citric Acid 30 ML UDC PO (22:34)
[2023-12-30] MEDS: Acetaminophen 500 MG Tablet 1000 MG PO (22:34)
--- NOTE | 2023-12-30 23:43 | EX.PCM.OBRPT ---
Assessment & Plan (1) AMA (advanced maternal age) multigravida 35+: QUALIFIERS: Trimester: third trimester Qualified Code(s): O09.523 - Supervision of elderly multigravida, third trimester COMMENT: growth US 36 wk: EFW 64%, AC 75% (2) Abnormal glucose affecting : COMMENT: 3 hr GTT normal (3) Headache in : QUALIFIERS: Trimester: second trimester Qualified Code(s): O26.892 - Other specified related conditions, second trimester; R51.9 - Headache, unspecified COMMENT: No vision changes. Phenergan sent, may use small amount caffeine (4) Nausea/vomiting in : COMMENT: phenergan; occurs a couple mornings per week, try pepcid Qhs (5) resulting from in-vitro fertilization: COMMENT: recommend third trimester testing and 39 week delivery echo 22-24 wk-nl (6) Hx of pre-eclampsia in prior , currently : COMMENT: baseline labs ordered, on heparin (7) Supervision of high-risk : QUALIFIERS: Trimester: second trimester Qualified Code(s): O09.92 - Supervision of high risk , unspecified, second trimester COMMENT: PRR , HARSHAL 12/31/23, boy Rudolph Mortensen, Tho (8) : QUALIFIERS: Weeks of gestation: 39 weeks Qualified Code(s): Z3A.39 - 39 weeks gestation of COMMENT: gbs neg, declined genetic & carrier testing [facility] 08/04/23 (9) History of delivery: COMMENT: 2017 ectopic 2021 primary section for distress and htn. 62% success, wants to - tearful when bringing up scheduling incase does not go in to labor. StatesI only came here to and I'm paying out of pocket, so if we are planning a then I will go to a place closer to my home. has a difficult time post op with a wound vac. C/S scheduled for 12/31 @ 7:15 JV (10) Heterozygous factor V Leiden mutation: COMMENT: Factor 2 and factor V heterozygous- no clots in past but father had life threatening blood clots with these disorders and specialists in the past have recommended lovenox during . On lovenox, plan twice weekly NST between 39-40 weeks with zoniayr at 40 weeks requested by patient. if will deliver in [place], if repeat csection may deliver at [facility] due to insurance coverage. Maternal Data Information HARSHAL Calculator Estimated Delivery Date Method Current WG Current Estimate 12/31/23 LMP (Certain) 39w 6d Other Estimates 03/02/24 Conception 31w 0d Final HARSHAL: 12/31/23 Final HARSHAL Source: LMP Details Operative Information Date of Procedure: 12/30/23 Pre-Operative Diagnosis: @ 39 weeks 6 days, PROM, prior section Post-Operative Diagnosis: @ 39 weeks 6 days, PROM, prior section Classification: MELISA Procedure Type: low transverse respite coordinator #1: Hardeep Tejada Type of Anesthesia: Spinal Antibiotic Given: Ancef 2 grams IV x1 and Zithromax 500 mg/5 mL X1 Drain: Lo to straight drain Estimated Blood Loss: [id number] Procedure Start Time: 23:09 Procedure Stop Time: 23:50 Time of Delivery: 23:15 Findings Description of Procedure: Procedure: The patient was brought to the operating room and spinal anesthesia was found to be adequate. She was prepped and draped in the normal sterile fashion and was placed in a dorsal supine position with a leftward tilt. Pfannenstiel skin incision was made with a scalpel and carried through to the underlying layers. The fascia was nicked in the midline and extended laterally using Rodrigez scissors. The anterior aspect of the fascia was grasped with Eric clamps and the underlying rectus muscles dissected off using the Metzenbaum scissors. The inferior aspect the fascia was also grasped with Eric clamps and the underlying rectus muscle dissected off with the Metzenbaum scissors. The rectus muscles were in the midline. Peritoneum was entered sharply. The uterus was identified and a bladder blade was inserted into the abdomen. Bladder flap was created off the uterus using Metzenbaum scissors. A transverse incision was made with a scalpel and extended laterally manually. The 's head was grasped with the help of my assistant track coach and fundal pressure the was delivered through the uterine incision without difficulty. The mouth and nares were bulb suctioned. After a 30 second delay the cord was clamped and cut. The was handed off to the awaiting nursefor routine assessment. Placenta was delivered manually without difficulty. The uterus was exteriorized and cleared of all clots and debris. The ovaries were normal and the right fallopian tube was normal. The left fallopian tube was surgically absent. Incision was closed with an 0 Vicryl suture in a running locked fashion. Second layer of 1-0 monocryl suture was used in imbricating manner to create excellent closure and hemostasis. The uterus was returned to the abdomen. The gutters were cleared of all clots and debris. The peritoneum was closed in a pursestring pattern using a 3-0 Vicryl suture. This muscle was reapproximated with a 3-0 Vicryl. The fascia was closed with an 0-PDS suture. Subcutaneous tissue layer was closed using a plain gut suture. The skin was closed with a 4-0 Monocryl subcuticular stitch. The skin was also sealed with surgical glue. The patient tolerated the procedure well sponge lap and needle counts were correct at each tissue closure plane and the patient is now being brought to the recovery room in stable condition Presentation: Positive for Vertex Amniotic Membrane Rupture Type: Spontaneous Time of Membrane Ruptured: 1200 Amniotic Fluid Description: Clear Placental Delivery Description: Manual Removal Placenta Disposition: [facility] Cord Vessel Description: 3 Vessels Cord Entanglement: None Infant A Gender: Male (1 minute): 9 (5 minute): 9 Delayed Cord Clamping: Yes Complications Risks of Surgery Discussed w/Patient: Anesthesia Risks, Infection, Need for Future C-Sections and Injury to surrounding structure(s) including bowel and bladder Multi Select Codes Urinary/Genital Urinary/Genital CPT Codes: 51001 Delivery [facility]
--- NOTE | 2023-12-30 23:47 | DCINST_ITS ---
Discharge Instructions Diet Discharge Diet: No restrictions Activity Discharge Activity: May Not Drive (for 2 weeks or while taking narcotic pain medications.), May Shower and May Take a Tub Bath (in 7 days.) May resume sexual activity in: 4-6 weeks Weight Bearing Status: Full weight bearing Lifting Restrictions: 20 pounds Dressing / Incision Call your doctor if your incision/area has: Continuous Slow Oozing, Sudden Increased Bleeding, Increased Pain/ Swelling, Increased Redness and Foul Smelling Discharge Call your doctor if you observe: Fever of 101 or Higher and Using more than 1 pad per hour Suture Line Care: Avoid Pulling/Pushing and Avoid Pinching/Bending Cleanse incision/area with: Soap & Water and Keep Dressing Clean & Dry Follow Up Care Please Follow Up With: Selina Burgess DO When: Call [phone] to make an appointment for an incision check in 1-2 weeks. Test Results: Test results from this visit will be discussed in further detail at your follow- up appointment, if applicable. Discharge Plan Admission Admit Date/Time: 12/30/23 17:17 Primary Reason for Your Visit: section Attending Provider: Selina Burgess Primary Care Provider: Nuvia Oro,Angélica Primary Discharge Orders/Prescriptions Prescriptions: New oxycodone-acetaminophen [Percocet] 5-325 mg tablet 1 tab PO Q4H PRN (Reason: pain) 7 Days Qty: 20 0RF Rx Instructions: 1-2 tabs q 4 hrs as needed for pain naproxen 500 mg tablet 500 mg PO BID PRN (Reason: pain) Qty: 30 0RF Continued DHA 200 mg capsule PO cholecalciferol (vitamin D3) 50 mcg (2,000 unit) capsule 50 mcg PO DAILY ascorbic acid (vitamin C) 500 mg capsule PO (DME) breast pump Device See Rx Instructions .ROUTE .MEDSUPPLY Qty: 1 0RF Rx Instructions: As directed enoxaparin 40 mg/0.4 mL syringe 40 mg subcut DAILY Discontinued heparin, porcine (PF) 5,000 unit/0.5 mL syringe 5,000 unit subcut Q12H Qty: 25 0RF Referrals / Follow Up: Care Physician,No Primary [Primary Care Provider] - Disposition Disposition (needs filled in before D/C Order can be placed): Home, Self Care
[2023-12-30] MEDS: Cefazolin 2 GM in 0.9% Normal Saline (100mL Bag) 100 ML IV (23:54)
[2023-12-31] VITALS (19 sets, daily range): BP systolic 99–131; BP diastolic 64–85; PULSE 62–89; RESP 16; TEMP 36.1–36.8; O2SAT 97–100
[2023-12-31] MEDS: Oxytocin 15 Units/NS 250ml 15 UNITS/250 ML IV.SOLN 83 UNITS IV (00:10)
[2023-12-31] MEDS: Azithromycin 500 MG in Dextrose 5%-Water (250mL Bag) 250 ML 250 MG IV (00:10)
[2023-12-31] MEDS: Ketorolac 30 MG/ML Syringe IV ×4 (00:57→17:53)
[2023-12-31] MEDS: Acetaminophen 500 MG Tablet 1000 MG PO ×4 (00:57→23:18)
[2023-12-31] MEDS: Lactated Ringers 1,000 ML 100 ML IV (01:40)
[2023-12-31 06:43] LABS: Hematocrit 33.8 % (37-47); Hemoglobin 11.4 g/dL (12.0-15.0); Mean Corp Hgb Conc 33.7 g/dL (32-36); Mean Corpuscular Hgb 31.1 pg (27.0-32.0); Mean Corpuscular Volume 92.1 fL (81-99); Mean Platelet Vol. 10.5 fl (6.2-12.0); Platelet Count 136 K/mm3 (150-450); RBC Distribution Width CV 12.9 % (11.6-14.6); RBC Distribution Width SD 43.3 fl (35.1-43.9); Red Blood Count 3.67 M/mm3 (4.2-5.4); White Blood Count 7.5 K/mm3 (4.4-11.0)
--- NOTE | 2023-12-31 07:19 | PCM.PN.OB ---
Subjective Subjective Patient doing well without complaints. Tolerating PO. Ambulating and voiding without difficulty. Feeding well. Denies chest pain, shortness of breath, calf pain/swelling, fevers, chills, lightheadedness. Objective Data Objective Data Vital Signs: Vital Signs Temp Pulse Resp BP Pulse Ox O2 Del Method 97.3 F L 62 16 114/76 99 Room Air 12/31/23 06:00 12/31/23 06:00 12/31/23 06:00 12/31/23 06:00 12/31/23 06:00 12/31/23 06:00 Oxygen Delivery Method Room Air Weight: 173 lb 3.2 oz Body Mass Index (BMI) 31.1 Intake & Output: Intake and Output for Last 24 Hours 12/29/23 12/30/23 12/31/23 23:59 23:59 23:59 Intake Total 1000 / 1000 615 / 615 Output Total 675 / 675 Balance 1000 / 1000 -60 / -60 Lab / Micro Data Attestation: I reviewed the patient's lab results. 12/31/23 06:33 Labs: Laboratory Results - last 24 hr 12/30/23 17:15: Vag Amniotic Fld Detect POSITIVE H 12/30/23 18:05: WBC 6.4, RBC 4.04 L, Hgb 12.6, Hct 36.6 L, MCV 90.6, MCH 31.2, MCHC 34.4, RDW Std Deviation 42.5, RDW Coeff of Nancy 12.8, Plt Count 177, MPV 10.6, Immature Gran % (Auto) 0.300, Neut % (Auto) 67.3, Lymph % (Auto) 19.3, Garfield % (Auto) 7.2, Eos % (Auto) 5.6 H, Baso % (Auto) 0.3, Absolute Neuts (auto) 4.3, Absolute Lymphs (auto) 1.24, Nucleated RBC % 0, Syphilis Total Ab Non-reactive, Blood Type A POSITIVE, Antibody Screen NEGATIVE 12/31/23 06:33: WBC 7.5, RBC 3.67 L, Hgb 11.4 L, Hct 33.8 L, MCV 92.1, MCH 31.1, MCHC 33.7, RDW Std Deviation 43.3, RDW Coeff of Nancy 12.9, Plt Count 136 L, MPV 10.5 ROS Constitutional Constitutional: Reports systems reviewed and no addt'l complaints, except as documented; Denies anorexia or headache(s) Cardiovascular Cardiovascular: Reports systems reviewed and no addt'l complaints, except as documented; Denies dizziness, dyspnea, nausea or tachypnea Respiratory/Chest Respiratory/Chest: Reports systems reviewed and no addt'l complaints, except as documented; Denies cough, dyspnea, shortness of breath at rest or tachypnea Gastrointestinal Gastrointestinal: Reports systems reviewed and no addt'l complaints, except as documented; Denies abdominal pain, constipation or nausea Genitourinary Genitourinary: Reports systems reviewed and no addt'l complaints, except as documented; Denies burning urination, difficulty urinating, dysuria, urinary frequency or urinary incontinence Musculoskeletal Musculoskeletal: Reports systems reviewed and no addt'l complaints, except as documented Integumentary Integumentary: Reports systems reviewed and no addt'l complaints, except as documented Neurologic Neurologic: Reports systems reviewed and no addt'l complaints, except as documented; Denies abnormal speech, dizziness or headache(s) Psychiatric Psychiatric: Reports systems reviewed and no addt'l complaints, except as documented Endocrine Endocrinology: Reports systems reviewed and no addt'l complaints, except as documented Hematologic/Lymphatic Hematologic/Lymphatic: Reports systems reviewed and no addt'l complaints, except as documented Physical Exam Const alert, oriented x3 and no apparent distress Neck full ROM Resp normal respiratory effort, normal air movement and no retractions Effort and Inspection: able to speak in complete sentences and symmetric chest movement GI soft to palpation Bladder / Kidney Exam: bladder normal to palpation Uterus Palpation: uterus fundus Extremity normal to inspection and full ROM Psych mental status grossly normal, thought process normal and cooperative Assessment & Plan (1) Status post section: PLAN: s/p LTCS PPD # 1 1. routine post care 2. breast feeding- support given 3. rh positive 4. rubella immune (2) Tick bite of abdomen: COMMENT: Lyme test neg (3) AMA (advanced maternal age) multigravida 35+: QUALIFIERS: Trimester: third trimester Qualified Code(s): O09.523 - Supervision of elderly multigravida, third trimester COMMENT: growth US 36 wk: EFW 64%, AC 75% (4) Headache in : QUALIFIERS: Trimester: second trimester Qualified Code(s): O26.892 - Other specified related conditions, second trimester; R51.9 - Headache, unspecified COMMENT: No vision changes. Phenergan sent, may use small amount caffeine (5) Nausea/vomiting in : COMMENT: phenergan; occurs a couple mornings per week, try pepcid Qhs (6) resulting from in-vitro fertilization: COMMENT: recommend third trimester testing and 39 week delivery echo 22-24 wk-nl (7) Hx of pre-eclampsia in prior , currently : COMMENT: baseline labs ordered, on heparin (8) Supervision of high-risk : QUALIFIERS: Trimester: second trimester Qualified Code(s): O09.92 - Supervision of high risk , unspecified, second trimester COMMENT: PRR , HARSHAL 12/31/23, boy Rudolph PV Festus, Tho (9) : QUALIFIERS: Weeks of gestation: 39 weeks Qualified Code(s): Z3A.39 - 39 weeks gestation of COMMENT: gbs neg, declined genetic & carrier testing [facility] 08/04/23 (10) History of delivery: COMMENT: 2017 ectopic 2021 primary section for distress and htn. 62% success, wants to - tearful when bringing up scheduling incase does not go in to labor. StatesI only came here to and I'm paying out of pocket, so if we are planning a then I will go to a place closer to my home. has a difficult time post op with a wound vac. C/S scheduled for 12/31 @ 7:15 JV (11) Heterozygous factor V Leiden mutation: COMMENT: Factor 2 and factor V heterozygous- no clots in past but father had life threatening blood clots with these disorders and specialists in the past have recommended lovenox during . On lovenox, plan twice weekly NST between 39-40 weeks with deliveyr at 40 weeks requested by patient. if will deliver in [place], if repeat csection may deliver at [facility] due to insurance coverage. Charges/Coding Multi Select Codes Urinary/Genital Urinary/Genital CPT Codes: No Charge
[2023-12-31] MEDS: Senna/Docusate Sodium 1 Tablet PO (10:01)
[2023-12-31] MEDS: Enoxaparin 40 MG/0.4 ML Syringe SC (11:40)
[2023-12-31] MEDS: 0.9% Saline Lock 10 ML Syringe IV ×2 (11:42→17:53)
[2023-12-31] MEDS: Naproxen 500 MG Tablet PO (23:18)
[2024-01-01 02:19] VITALS: BP 111/76; PULSE 64; RESP 16; TEMP 36.4; O2SAT 99
[2024-01-01] MEDS: Acetaminophen 500 MG Tablet 1000 MG PO ×2 (06:10→11:32)
--- NOTE | 2024-01-01 06:54 | PCM.DC.SUM ---
Providers Date of Admission: 12/30/23 Primary Care Physician: No Primary Care Phys Reason For Visit: C SECTION Diagnosis Discharge Diagnosis (1) Status post section: Status: Acute Code(s): Z98.891 - History of uterine scar from previous surgery (2) Tick bite of abdomen: Status: Acute Code(s): S30.861A - Insect bite (nonvenomous) of abdominal wall, initial encounter; W57.XXXA - Bitten or stung by nonvenomous insect and other nonvenomous arthropods, initial encounter (3) AMA (advanced maternal age) multigravida 35+: Status: Acute Code(s): O09.529 - Supervision of elderly multigravida, unspecified trimester Qualifiers: Trimester: third trimester Qualified Code(s): O09.523 - Supervision of elderly multigravida, third trimester (4) Headache in : Status: Resolved Code(s): O26.899 - Other specified related conditions, unspecified trimester; R51.9 - Headache, unspecified Qualifiers: Trimester: second trimester Qualified Code(s): O26.892 - Other specified related conditions, second trimester; R51.9 - Headache, unspecified (5) Nausea/vomiting in : Status: Resolved Code(s): O21.9 - Vomiting of , unspecified (6) resulting from in-vitro fertilization: Status: Resolved Code(s): O09.819 - Supervision of resulting from assisted reproductive technology, unspecified trimester (7) Hx of pre-eclampsia in prior , currently : Status: Resolved Code(s): O09.299 - Supervision of with other poor reproductive or obstetric history, unspecified trimester (8) Supervision of high-risk : Status: Resolved Code(s): O09.90 - Supervision of high risk , unspecified, unspecified trimester Qualifiers: Trimester: second trimester Qualified Code(s): O09.92 - Supervision of high risk , unspecified, second trimester (9) : Status: Resolved Code(s): Z34.90 - Encounter for supervision of normal , unspecified, unspecified trimester Qualifiers: Weeks of gestation: 39 weeks Qualified Code(s): Z3A.39 - 39 weeks gestation of (10) History of delivery: Status: Acute Code(s): Z98.891 - History of uterine scar from previous surgery (11) Heterozygous factor V Leiden mutation: Status: Acute Code(s): D68.51 - Activated protein C resistance Plan patient is not an ideal candidate for at this time as she is pprom and cervix is closed thick and high. At this point she is at significant risk for chorio if we do not proceed with delivery in a timely manner. She ate a grilled cheese sandwhich with salami and broccoli at 3 pm an anesthesia wants to wait a full 8 hours before her section if possible. plan is to re-check cervix around 10:15 or 11 pm tonight and if not dilated will proceed with section. Medications at Discharge Home Medications ascorbic acid (vitamin C) 500 mg capsule mg PO 11/28/22 cholecalciferol (vitamin D3) 50 mcg (2,000 unit) capsule 50 mcg PO DAILY 11/28/22 docosahexaenoic acid 200 mg capsule ( DHA) mg PO 11/28/22 breast pump #1 ea 11/05/23 enoxaparin 40 mg/0.4 mL subcutaneous syringe 40 mg subcut DAILY see provider 12/30/23 naproxen 500 mg tablet 500 mg PO BID PRN pain #30 tabs 01/01/24 oxycodone-acetaminophen 5 mg-325 mg tablet (Percocet) 1 tab PO Q4H PRN pain 7 days #30 tabs 01/01/24 Hospital Course Operations - ( section ) Summary of Care Provided Minutes Spent on Discharge: 30 Hospital Course: The patient was admitted for a repeat section on 12/30/2023. She has a history of prior section and wanted to , however her membranes ruptured at 12:00 pm on 12/30/23 and it was 11 hours since rupture and cervix was not even a dimple dilated despite contractions occurring every 2-4 minutes. At 11 pm the deicion was made to proceed with section. There were no complications. On day #1 she was tolerating pain well and ambulating, on day #2 she was ready for discharge. Physical Exam HEENT normocephalic Resp normal respiratory effort and normal air movement GI soft to palpation, non-tender and non-distended Rectal Exam: other Other Details: Incision is clean, dry, and intact no CVA tenderness Extremity normal to inspection General Extremity: edema bilateral (trace ) Weight / BMI Weight Weight: 173 lb 3.2 oz Body Mass Index (BMI) 31.1 ABG / Lab / Microbiology Data 12/31/23 06:33 D/C Instructions Discharge Diet: No restrictions Discharge Activity: May Not Drive (for 1 week) May shower in (days): 1 May resume sexual activity in: 4-6 weeks Weight Bearing Status: Full weight bearing Lifting Restrictions: 10 pounds Call your doctor if your incision/area has: Continuous Slow Oozing, Sudden Increased Bleeding, Increased Pain/ Swelling, Increased Redness and Foul Smelling Discharge Call your doctor if you observe: Fever of 101 or Higher and Using more than 1 pad per hour Suture Line Care: Avoid Pulling/Pushing and Avoid Pinching/Bending Change Dressing in: leave in place till F/U Cleanse incision/area with: Soap & Water and Keep Dressing Clean & Dry Please Follow Up With: Selina Burgess DO When: Call [phone] to make an appointment for an incision check in 1-2 weeks. Meaningful Use Info Meaningful Use Meaningful Use Diagnoses (Choose all that apply): None applicable Ischemic Stroke Statin Dosing Therapy Reference: STATIN DOSE THERAPY REFERENCE: * Patients > 75 years receive moderate or high dose statin therapy. * Patients 75 years or YOUNGER should receive HIGH intensity statin dose unless contraindicated. You will be required to document reason for non-treatment if statin daily dose does not meet guidelines. HIGH DOSE STATIN THERAPY DAILY Atorvastatin > than or = to 40 mg Rosuvastatin > than or = to 20 mg Amlodipine + Atorvastatin > than or = to 2.5/40 mg Ezetimibe + Simvastatin 10/80 mg Simvastatin 80mg Discharge Plan Admission Admit Date/Time: 12/30/23 17:17 Primary Reason for Your Visit: section Attending Provider: Selina Burgess Primary Care Provider: Care Physician,No Primary Discharge Orders/Prescriptions Prescriptions: New oxycodone-acetaminophen [Percocet] 5-325 mg tablet 1 tab PO Q4H PRN (Reason: pain) 7 Days Qty: 30 0RF Rx Instructions: 1-2 tabs q 4 hrs as needed for pain naproxen 500 mg tablet 500 mg PO BID PRN (Reason: pain) Qty: 30 0RF Continued DHA 200 mg capsule PO cholecalciferol (vitamin D3) 50 mcg (2,000 unit) capsule 50 mcg PO DAILY ascorbic acid (vitamin C) 500 mg capsule PO (DME) breast pump Device See Rx Instructions .ROUTE .MEDSUPPLY Qty: 1 0RF Rx Instructions: As directed enoxaparin 40 mg/0.4 mL syringe 40 mg subcut DAILY Discontinued heparin, porcine (PF) 5,000 unit/0.5 mL syringe 5,000 unit subcut Q12H Qty: 25 0RF Referrals / Follow Up: Care Physician,No Primary [Primary Care Provider] - Disposition Disposition (needs filled in before D/C Order can be placed): Home, Self Care
[2024-01-01] MEDS: Naproxen 500 MG Tablet PO (08:07)
[2024-01-01 08:09] VITALS: BP 110/75; PULSE 70; RESP 16; TEMP 36.6; O2SAT 99
[2024-01-01] MEDS: Enoxaparin 40 MG/0.4 ML Syringe SC (10:37)
[2024-01-01] MEDS: Senna/Docusate Sodium 1 Tablet PO (10:37)
[2024-01-01 13:48] VITALS: BP 111/74; PULSE 77; RESP 16; TEMP 36.8; O2SAT 98
== END 2024-01-01 14:30 | disposition home or self-care (01) | DRG 787 ==
PROVIDERS: Admitting Provider Obstetrics & Gynecology; Referring Provider Obstetrics & Gynecology; Visit Provider Obstetrics & Gynecology
DX: O42.92 Full-term premature rupture of membranes, unspecified as to length of time between rupture and onset of labor (principal); O99.12 Other diseases of the blood and blood-forming organs and certain disorders involving the immune mechanism complicating childbirth; D68.51 Activated protein C resistance; S30.861A Insect bite (nonvenomous) of abdominal wall, initial encounter; O34.219 Maternal care for unspecified type scar from previous cesarean delivery; Z37.0 Single live birth; Z79.01 Long term (current) use of anticoagulants; Z3A.39 39 weeks gestation of pregnancy; O26.23 Pregnancy care for patient with recurrent pregnancy loss, third trimester; W57.XXXA Bitten or stung by nonvenomous insect and other nonvenomous arthropods, initial encounter; O9A.23 Injury, poisoning and certain other consequences of external causes complicating the puerperium
CPT/HCPCS: 59025; 59050; 84112; 85025; 85027; 86780; 86850; 86900; 86901; 99221; J7120; A4216; G0378; J2405